=== PATIENT | female | born 1945 | race Caucasian/White ===

== ENCOUNTER 2017-08-06 07:27 | Outpatient (CLI) | payer OTHER ==
[~2017-08-06 07:27] MED LIST: AVAPRO150 MG; FLONASE16 G1 NS; SYNTHROID; VYTORIN 10-40 M1 TAB; ZYRTEC10 MG PO
== END 2017-08-06 14:18 | disposition home or self-care (01) ==
LOC: NUCLEAR 07:27
DX: R94.31 Abnormal electrocardiogram [ECG] [EKG] (principal)
CPT/HCPCS: 78452; 93017; A9500